=== PATIENT | male | born 1970 | race Caucasian/White ===

== ENCOUNTER 2020-01-29 07:59 | Outpatient (CLI) | payer BC ==
--- NOTE | 2020-01-29 09:31 | ULT ---
EXAM: US Abdominal CLINICAL HISTORY: Portal hypertension. COMPARISON: None. FINDINGS: Pancreas: Visualized pancreatic parenchyma has a normal echotexture. IVC: Visualized IVC has a normal caliber. Aorta: Visualized aorta has a normal caliber. Liver:Hepatic parenchyma has a normal echotexture. No hepatic masses or intrahepatic biliary dilatati on. The contour of the hepatic margin is maintained. Right hepatic lobe measures 13.1 cm. In the right hepatic lobe is a 2.1 x 2.3 x 2.0 cm anechoic focus which may represent a hepatic cyst Gallbladder: No sonographic evidence of cholelithiasis, or pericholecystic fluid. Gallbladder wall is thickened measuring 0.5 cm Hauser's sign:Negative CBD: 0.6 cm common bile duct diameter Portal vein: Patent. Appropriate directional flow. Portal vein measures 1.3 cm Right kidney: Normal cortical echotexture. No hydronephrosis. 0.8 x 0.6 x 0.7 cm cyst in the upper p ole. Right kidney measuring 5.5 x 9.9 x 5.4 cm in length. Left kidney: Evaluation of the cortex. No obvious hydronephrosis. Left kidney measuring 10.0 x 4.2 x 4.6 cm in length Spleen: Normal echotexture, measuring 17.9 cm in maximum dimension IMPRESSION: 1. Splenomegaly 2. Patent portal vein with appropriate directional flow 3. Right hepatic lobe cyst. 4. Nonspecific gallbladder wall thickening. If there is concern for acalculous cholecystitis, conside r HIDA scan.
== END 2020-01-29 08:00 | disposition home or self-care (01) ==
LOC: SCSULT 07:59
PROVIDERS: ATTEND Internal Medicine Hepatology
DX: K76.6 Portal hypertension (principal); R16.1 Splenomegaly, not elsewhere classified; K76.89 Other specified diseases of liver; K82.8 Other specified diseases of gallbladder
CPT/HCPCS: 93975